=== PATIENT | male | born 1955 | race Caucasian/White ===

== ENCOUNTER 2021-09-12 10:10 | Emergency (ER) | payer MEDICAID ==
[~2021-09-12] VITALS: Ht 170.2 cm; Wt 75.0 kg
--- NOTE | 2021-09-12 10:56 | NUR ---
pt reports he quick drinking alcohol six weeks ago. was drinking 20 natural light beers a day, now drinks one beer approx every 4 days. pt is on naltrexone.
--- NOTE | 2021-09-12 12:15 | NUR ---
PROVIDER AT BEDSIDE
[2021-09-12] MEDS ORDERED: MAGN296S70 PO (12:49)
[2021-09-12 14:26] VITALS: BP 148/80
== END 2021-09-12 14:30 | disposition home or self-care (01) ==
LOC: ER 10:10
DX: K59.00 Constipation, unspecified (principal); R14.0 Abdominal distension (gaseous); Z72.89 Other problems related to lifestyle; Z79.899 Other long term (current) drug therapy
CPT/HCPCS: 99282

== ENCOUNTER 2022-07-17 13:01 | Emergency (ER) | payer MEDICAID ==
[~2022-07-17] VITALS: Ht 162.6 cm; Wt 61.8 kg
[~2022-07-17 13:01] MED LIST: MAGN296S PO
[2022-07-17 14:18] VITALS: BP 155/87
== END 2022-07-17 19:19 | disposition left against medical advice (07) ==
LOC: ER 13:01
DX: M79.644 Pain in right finger(s) (principal); Z53.21 Procedure and treatment not carried out due to patient leaving prior to being seen by health care provider